=== PATIENT | male | born 1955 | race Caucasian/White ===

== ENCOUNTER → 2018-11-01 | Outpatient (CLI) | payer OTHER ==
--- NOTE | 2018-11-01 17:32 | RADRPT ---
PROCEDURE: XR Right hip and pelvis. CLINICAL INDICATION: Right hip pain and pelvic pain. TECHNIQUE: 3 views. Frontal pelvis. Frontal and lateral right hip. COMPARISON: None. FINDINGS: There is no fracture or dislocation. The soft tissues are normal. There are severe degenerative changes of the right hip with joint space narrowing, osteophytes, subch ondral sclerosis, and marked deformity. The left hip is unremarkable. There is no lytic or blastic lesion. There is no radiopaque foreign body. IMPRESSION: 1. Severe degenerative changes of the right hip with marked deformity. 2. Otherwise unremarkable study. RPTAT: QQ .Imtiaz Lion MD, MD Date Time Electronically viewed and signed by .Imtiaz Lion MD, MD on 11/01/2018 17:32 .R/
--- NOTE | 2018-11-01 20:59 | HKNOTE ---
DATE OF SERVICE: 11/01/2018 CHIEF COMPLAINT: Right hip pain. HISTORY OF PRESENT ILLNESS: Mr. Okeefe is a 63-year-old male who is complaining of chronic right groin pain. The pain radiates to the right knee. He has difficulty ambulating. He states that the pain is constant. There are no alleviating factors. He has had previous physical therapy, injections and pain medications without pain relief. He currently does not use any assistive devices. He has seen Dr. Russell previously. PAST MEDICAL HISTORY: Diabetes. MEDICATIONS: Metformin. PAST SURGICAL HISTORY: Right hip surgery 45 years ago. SOCIAL HISTORY: He is current tobacco and alcohol user. He smokes approximately 1 pack per day. FAMILY HISTORY: None. ALLERGIES: NO KNOWN DRUG ALLERGIES. PHYSICAL EXAMINATION: Gait: Antalgic gait with a limp. Right hip: The right leg is shorter than the left leg. Hip flexion 90 degrees, extension 30 degrees , internal rotation 10 degrees, external rotation 40 degrees. Positive ABELARDO test. A 5/5 function o f quadriceps, tibialis anterior, gastroc soleus. 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 ASSESSMENT AND PLAN: A 63-year-old male with right hip dysplastic osteoarthritis. PLAN: I discussed treatment options with the patient. The patient would benefit from right total hi p arthroplasty. At this time, he is not a candidate for surgery due to his diabetes and continued to bacco use. I advised the patient that he would need to quit tobacco use for 6 weeks and have his blo od cotinine levels checked prior to surgery. He also needs to improve his blood sugars and have a he moglobin A1c level less than 6.7 prior to surgery. I would be glad to reevaluate the patient in 4 mo nths. Dictated By: FARHEEN CALI/LISA Conf#: [id number] DID#: [id number]
== END | disposition home or self-care (01) ==
LOC: HKI 14:00
PROVIDERS: ATTEND Orthopaedic Surgery Adult Reconstructive Orthopaedic Surgery
DX: M16.11 Unilateral primary osteoarthritis, right hip (principal); E11.9 Type 2 diabetes mellitus without complications; Z79.84 Long term (current) use of oral hypoglycemic drugs; F17.210 Nicotine dependence, cigarettes, uncomplicated
CPT/HCPCS: 73502; Z7500; G0463